=== PATIENT | female | born 1945 | race Caucasian/White ===

== ENCOUNTER 2019-08-11 18:29 | Emergency (ER) | payer MEDICARE, OTHER ==
[2019-08-11] MEDS ORDERED: ONDANSETRON 4 MG TAB.RAPDIS PO ONE (19:29)
--- NOTE | 2019-08-11 19:35 | ER Document Report ---
ED Medical Screen (RME) - General Chief Complaint: Dizziness Stated Complaint: VOMITING Time Seen by Provider: 08/11/19 19:28 Primary Care Provider: OLEGARIO RENNER [Primary Care Provider] - Follow up as needed TRAVEL OUTSIDE OF THE [place] IN LAST 30 DAYS: No - HPI Notes: 08/11/19 19:34 Patient is a 73-year-old female with a history of hypertension, diabetes who presents complaining of sudden onset dizziness with nausea vomiting and elevated blood pressure at 5 PM today. Patient states that she her sugar was in the 160s a couple hours ago. Patient states that she does feel off balance. No fever, chest pain, shortness of breath, abdominal pain. Charge nurse notified. I have treated and performed a rapid initial assessment of this patient. A comprehensive ED assessment and evaluation of the patient, analysis of test results and completion of medical decision making process will be conducted by additional ED providers. PHYSICAL EXAMINATION: GENERAL: Well-appearing, well-nourished and in no acute distress. A&Ox4. Answers questions appropriately. Neuro: Cranial nerves grossly intact. GCS 15. PERRLA, EOMI b/l. Symmetric face, no obvious weakness b/l. - Related Data Allergies/Adverse Reactions: hydromorphone [From Dilaudid] Allergy (Verified 08/11/19 19:28) meperidine [From Demerol] Allergy (Verified 08/11/19 19:28) propoxyphene [From Darvon] Allergy (Verified 08/11/19 19:28) Past Medical History - Social History Frequency of alcohol use: None Drug Abuse: None Physical Exam - Vital signs Vitals: Temp Pulse Resp BP Pulse Ox 97.6 F 79 18 155/81 H 95 08/11/19 18:35 08/11/19 18:35 08/11/19 18:35 08/11/19 18:35 08/11/19 18:35 Course - Vital Signs Vital signs: Temp Pulse Resp BP Pulse Ox 97.6 F 79 18 155/81 H 95 08/11/19 18:35 08/11/19 18:35 08/11/19 18:35 08/11/19 18:35 08/11/19 18:35 Doctor's Discharge - Discharge Referrals: OLEGARIO RENNER [Primary Care Provider] - Follow up as needed
[2019-08-11 20:08] LABS: ABSOLUTE BASOPHILS # (AUTO) 0.1 10^3/uL (0.0-0.2); ABSOLUTE EOSINOPHILS # (AUTO) 0.3 10^3/uL (0.0-0.6); ABSOLUTE LYMPHOCYTES (AUTO) 1.8 10^3/uL (0.5-4.7); ABSOLUTE MONOCYTES (AUTO) 0.8 10^3/uL (0.1-1.4); ABSOLUTE NEUT (AUTO) 6.8 10^3/uL (1.7-8.2); BASOPHILS % (AUTO) 0.9 % (0-2); EOSINOPHILS % (AUTO) 2.7 % (0-6); HEMATOCRIT 39.9 % (36.0-47.0); HEMOGLOBIN 13.6 g/dL (12.0-15.5); LYMPHOCYTES % (AUTO) 18.6 % (13-45); MEAN CORPUSCULAR HEMOGLOBIN 31.1 pg (27.0-33.4); MEAN CORPUSCULAR HGB CONC 34.2 g/dL (32.0-36.0); MEAN CORPUSCULAR VOLUME 91 fl (80-97); MONOCYTES % (AUTO) 7.9 % (3-13); PLATELET COUNT 281 10^3/uL (150-450); RED BLOOD COUNT 4.38 10^6/uL (3.72-5.28); RED CELL DISTRIBUTION WIDTH 12.2 % (11.5-14.0); SEGMENTED NEUTROPHILS % (AUTO) 69.9 % (42-78); TOTAL CELLS COUNTED % (AUTO) 100 %; WHITE BLOOD COUNT 9.7 10^3/uL (4.0-10.5)
[2019-08-11 20:15] LABS: INTERNATIONAL RATION (INR) 0.99; PROTHROMBIN TIME 13.1 SEC (11.4-15.4)
[2019-08-11 20:16] LABS: PARTIAL THROMBOPLASTIN TIME 39.8 SEC (23.5-35.8)
--- NOTE | 2019-08-11 20:16 | RADIOLOGY REPORT (SQ) ---
EXAM DESCRIPTION: CT HEAD WITHOUT IV CONTRAST COMPLETED DATE/TME: 08/11/2019 19:28 CLINICAL HISTORY: 73 years, Female, dizziness, off balance, ?stroke alert sx's x2.5hrs COMPARISON: None. TECHNIQUE: Images stored on PACS. All CT scanners at this facility use dose modulation, iterative reconstruction, and/or weight based dosing when appropriate to reduce radiation dose to as low as reasonably achievable (ALARA). [facility]: Dose Right [facility]: CareDose [facility]: Dose Right [facility]: Teradose 4D [facility]: [employer] LIMITATIONS: None. FINDINGS: Bowens-white differentiation is normal. The ventricles and extracerebral spaces are within normal limits, for age. No mass lesion, positive mass effect, or intracranial hemorrhage. Mucosal disease within the right maxillary sinus with retention cyst. Mastoid air cells are clear. Orbits and eyeballs are unremarkable. IMPRESSION: No acute intracranial process is identified. TECHNICAL DOCUMENTATION: Quality ID # 436: Final reports with documentation of one or more dose reduction techniques (e.g., Automated exposure control, adjustment of the mA and/or kV according to patient size, use of iterative reconstruction technique) copyright 2011 [employer]- All Rights Reserved
--- NOTE | 2019-08-11 20:17 | RADIOLOGY REPORT (SQ) ---
EXAM DESCRIPTION: XR CHEST 1 VIEW COMPLETED DATE/TME: 08/11/2019 19:28 CLINICAL HISTORY: 73 years, Female, dizzy COMPARISON: None. NUMBER OF VIEWS: Single TECHNIQUE: Portable AP upright LIMITATIONS: None. FINDINGS: Cardiomediastinal silhouette is prominent. Lungs are grossly clear with mild vascular congestion. No effusion. No pneumothorax. No consolidation or overt edema. Visualized bones are unremarkable IMPRESSION: Enlarged cardiac silhouette. Vascular congestion. Lungs grossly clear copyright 2011 [employer]- All Rights Reserved
[2019-08-11 20:22] LABS: ALBUMIN 4.4 g/dL (3.5-5.0); ALKALINE PHOSPHATASE 93 U/L (38-126); ANION GAP 11 (5-19); ASPARTATE AMINO TRANSFERASE 21 U/L (14-36); BILIRUBIN,DIRECT 0.3 mg/dL (0.0-0.4); BILIRUBIN,TOTAL 0.6 mg/dL (0.2-1.3); BLOOD UREA NITROGEN 28 mg/dL (7-20); CALCIUM 9.8 mg/dL (8.4-10.2); CARBON DIOXIDE 28 mmol/L (22-30); CHLORIDE 102 mmol/L (98-107); GLUCOSE 180 mg/dL (75-110); POTASSIUM 4.3 mmol/L (3.6-5.0); TOTAL PROTEIN 7.7 g/dL (6.3-8.2)
[2019-08-11 21:12] LABS: APPEARANCE,URINE CLEAR; BILIRUBIN,URINE NEGATIVE (NEGATIVE); COLOR,URINE YELLOW; GLUCOSE, URINE NEGATIVE (NEGATIVE); KETONES,URINE NEGATIVE (NEGATIVE); PROTEIN,URINE 30 mg/dL (NEGATIVE); URINE SPECIFIC GRAVITY 1.019; UROBILINOGEN,URINE NEGATIVE mg/dL (<2.0)
[2019-08-11] MEDS ORDERED: NORMAL SALINE 500 ML IV ONE (21:27)
--- NOTE | 2019-08-11 22:09 | ER Document Report ---
Entered by GIUSEPPE HOLMAN SCRIBE 08/11/192110 Acting as scribe for:BABAR PAUL IV, MD ED General - General Chief Complaint: Dizziness Stated Complaint: VOMITING Time Seen by Provider: 08/11/19 19:28 Primary Care Provider: OLEGARIO RENNER [NO LOCAL MD] - Follow up as needed Mode of Arrival: Wheelchair Information source: Patient Notes: This 73 year old female patient with a history of hypertension and diabetes presents to the ED today with complaints of sudden onset dizziness with associated nausea, vomiting, and elevated blood pressure that occurred around 1700 today. Patient states that she woke up from a nap and felt dizzy. Patient notes that she feels better now than when she arrived, but states that she still feels dizzy. Patient states that the dizziness is worse when she stands up. Patient also reports right shoulder pain post fall that occurred in October 2018. Patient states that she had an x-ray done at that time and that the "covering of the bone was torn". Patient states that she did not have surgery for it and that it is still bothering her. Patient denies fever, chest pain, shortness of breath, or abdominal pain. TRAVEL OUTSIDE OF THE [place] IN LAST 30 DAYS: No - Related Data Allergies/Adverse Reactions: hydromorphone [From Dilaudid] Allergy (Verified 08/11/19 19:28) meperidine [From Demerol] Allergy (Verified 08/11/19 19:28) propoxyphene [From Darvon] Allergy (Verified 08/11/19 19:28) Past Medical History - General Information source: Patient - Social History Smoking Status: Never Smoker Cigarette use (# per day): No Chew tobacco use (# tins/day): No Smoking Education Provided: No Frequency of alcohol use: None Drug Abuse: None Family History: Reviewed & Not Pertinent Patient has suicidal ideation: No Patient has homicidal ideation: No - Past Medical History Cardiac Medical History: Reports: Hx Hypercholesterolemia, Hx Hypertension Endocrine Medical History: Reports: Hx Diabetes Mellitus Type 2 Past Surgical History: Reports: Hx Appendectomy, Hx Bowel Surgery - diverticulitis, Hx Section, Hx Cholecystectomy Review of Systems - Review of Systems Constitutional: See HPI, Other - Elevated blood pressure. denies: Fever EENT: No symptoms reported Cardiovascular: See HPI, Dizziness. denies: Chest pain Respiratory: See HPI. denies: Short of breath Gastrointestinal: See HPI, Nausea, Vomiting. denies: Abdominal pain Genitourinary: No symptoms reported Female Genitourinary: No symptoms reported Musculoskeletal: No symptoms reported Skin: No symptoms reported Hematologic/Lymphatic: No symptoms reported Neurological/Psychological: No symptoms reported -: Yes All other systems reviewed and negative Physical Exam - Vital signs Vitals: Temp Pulse Resp BP Pulse Ox 97.6 F 79 18 155/81 H 95 08/11/19 18:35 08/11/19 18:35 08/11/19 18:35 08/11/19 18:35 08/11/19 18:35 Interpretation: Hypertensive - General General appearance: Appears well, Alert In distress: None - HEENT Head: Normocephalic, Atraumatic Eyes: Other - Mild horizontal fatiguing nystagmus which the the patient denies reproducing her symptoms. Pupils: PERRL - Respiratory Respiratory status: No respiratory distress Chest status: Nontender Breath sounds: Normal Chest palpation: Normal - Cardiovascular Rhythm: Regular Heart sounds: Normal auscultation Murmur: No - Abdominal Inspection: Normal Distension: No distension Bowel sounds: Normal Tenderness: Nontender Organomegaly: No organomegaly - Back Back: Normal, Nontender - Extremities General upper extremity: Normal inspection General lower extremity: Normal inspection - Neurological Neuro grossly intact: Yes - Psychological Associated symptoms: Normal affect, Normal mood - Skin Skin Temperature: Warm Skin Moisture: Dry Skin Color: Normal Course - Re-evaluation Re-evalutation: 08/11/19 23:26 Results of ED MSE discussed with patient and patient spouse. Patient states she feels much better at this time. Patient instructed to follow-up with an orthopedist about her chronic shoulder pain. All questions were answered prior to discharge. Emergency signs and symptoms, reasons to return to the ED dis cussed with patient and patient spouse. - Vital Signs Vital signs: Temp Pulse Resp BP Pulse Ox 98.3 F 72 16 160/85 H 95 08/11/19 23:51 08/11/19 23:51 08/11/19 23:51 08/11/19 23:51 08/11/19 23:51 - Laboratory Result Diagrams: 08/11/19 19:45 08/11/19 19:45 Laboratory results interpreted by me: 08/11/19 08/11/1908/11/20 19:45 19:45 19:45 APTT 39.8 H BUN 28 H Glucose 180 H POC Glucose NT-Pro-B Natriuret Pep 599 H Urine Protein 08/11/19 08/11/19 20:11 20:45 APTT BUN Glucose POC Glucose 181 H NT-Pro-B Natriuret Pep Urine Protein 30 H - Diagnostic Test Radiology reviewed: Reports reviewed Discharge - Discharge Clinical Impression: Acute vomiting, Dizziness, Dehydration, Chronic right shoulder pain Condition: Good Disposition: HOME, SELF-CARE Instructions: Antinausea Medication ([facility]) Additional Instructions: Return to the Emergency Department without delay if any worse. HOME CARE INSTRUCTIONS & INFORMATION: Thank you for choosing us for your medical needs. We hope you're satisfied with the care you received. After you leave, you must properly care for your problem and, at the same time, observe its progress. Any condition can change. Some illnesses can change rapidly over hours or days. If your condition worsens, return to the Emergency Department or see your physician promptly. ABOUT YOUR X-RAYS AND EKG'S: If you had an EKG or X-rays taken, they have been read by the Emergency Physician. The X-rays and EKG's will also be read by a Radiologist or Powder Carrier within 24 hours. If discrepancies are noted, you will be notified by telephone. Please be certain the ED has a correct telephone number & address where you can be reached. Also, realize that some fractures or abnormalities do not show up on initial X-rays. If your symptoms continue, see your physician. ABOUT YOUR LABORATORY TEST: If you had laboratory tests, the results have been reviewed by the Emergency Physician. Some test results (for example cultures) may not be available for several days. You will be contacted if any test result shows you need additional treatment. Please be certain the ED has a correct telephone number and address where you can be reached. ABOUT YOUR MEDICATIONS: You will receive instructions on how to take your medicine on the prescription label you receive. Additional information may be provided by the Pharmacy. If you have questions afterwards, call the ED for clarification or further instructions. Some prescribed medications may cause drowsiness. Do not perform tasks such as driving a car or operating machinery without consulting your Pharmacist. If you feel you need a refill of pain medication, your condition will need re-evaluation. Please do not call for a refill of any medication. ABOUT YOUR SIGNATURE: Signature of this document acknowledges to followin. Understanding that you received emergency treatment and that you may be released before al medical problems are known or treated. Please be certain the ED has a correct phone number & address where you can be reached. 2. Acknowledgement that you will arrange for follow-up care as recommended. 3. Authorization for the Emergency Physician to provide information to your follow-up Physician in order to maximize your care. AT ANY TIME, IF YOUR SYMPTOMS CHANGE SIGNIFICANTLY OR WORSEN OR YOU DEVELOP NEW SYMPTOMS, RETURN TO THE EMERGENCY DEPARTMENT IMMEDIATELY FOR RE-EVALUATION. OUR GOAL IS TO PROVIDE EXCELLENT MEDICAL CARE! WE HOPE THAT WE HAVE MET YOUR EXPECTATIONS DURING YOUR EMERGENCY DEPARTMENT VISIT AND THAT YOU FEEL YOU HAVE RECEIVED EXCELLENT CARE! Dehydration Dehydration can result from vomiting or diarrhea, fever, or decreased intake of fluids. If severe, hospitalization and intravenous fluids may be required. Most cases are treated at home with fluids by mouth. For the next 24 hours, drink lots of clear fluids. In mild cases, this can be soda pop or sports drinks. For more severe dehydration, the doctor may recommend special fluids such as Pedialyte or Lytren. Try to get three liters (3 quarts) of fluid per day. If vomiting occurs, continue to drink the fluids frequently (every 15 to 20 minutes), but in small amounts (one or two ounces). Depending on the type of dehydration, the doctor may prescribe antinausea medicine or potassium replacements. Call the doctor or return for re-examination if you become progressively weak, vomit repeatedly, or have other new symptoms. Prescriptions: Ondansetron [Zofran Odt 4 mg Tablet] 1 tab PO Q8H PRN #15 tab.rapdis PRN Reason: For Nausea/Vomiting Referrals: LOCALMD,NO [NO LOCAL MD] - Follow up as needed I personally performed the services described in the documentation, reviewed and edited the documentation which was dictated to the scribe in my presence, and it accurately records my words and actions.
--- NOTE | 2019-08-11 22:47 | RADIOLOGY REPORT (SQ) ---
EXAM DESCRIPTION: Right shoulder [facility]Lex: XR SHOULDER 2 OR MORE VIEWS Views: 3 CLINICAL HISTORY: 73 years Female; right shoulder pain; COMPARISON: None. FINDINGS: Negative for acute fracture, dislocation, or radiopaque foreign body. No a.c. subluxation. Subacromial space is normal. Adjacent ribs are intact. IMPRESSION: 1. No acute findings.
[2019-08-11 23:53] VITALS: BP 160/85
--- NOTE | 2019-08-12 01:10 | EKG REPORT ---
SEVERITY:- NORMAL ECG - SINUS RHYTHM : Confirmed by: Chey Galarza MD 12-Aug-2019 01:09:37
== END 2019-08-11 23:53 | disposition home or self-care (01) ==
LOC: ER 18:29
DX: R11.2 Nausea with vomiting, unspecified (principal); E86.0 Dehydration; R42 Dizziness and giddiness; G89.29 Other chronic pain; M25.511 Pain in right shoulder; E78.00 Pure hypercholesterolemia, unspecified; I10 Essential (primary) hypertension; E11.9 Type 2 diabetes mellitus without complications; Z88.6 Allergy status to analgesic agent
CPT/HCPCS: 93005; 99284; 96360; 36415; 82962; 83690; 85025; 85610; 85730; 80053; 81001; 84484; 83880; 71045; 73030; 70450; 93010; A9270; J7040; S0119